=== PATIENT | female | born 1950 | race Caucasian/White ===

== ENCOUNTER 2017-06-30 12:50 | Emergency (ER) | payer MEDICARE, OTHER ==
[2017-06-30] MEDS ORDERED: Tetracaine HCl 0.5% Ophth Soln 2 ML Bottle ONE (13:07)
[2017-06-30] MEDS ORDERED: Fluorescein Opthalmic Strip ONE (13:07)
== END 2017-06-30 13:25 | disposition home or self-care (01) ==
LOC: NAV ERS 12:50
DX: H10.9 Unspecified conjunctivitis (principal); M10.9 Gout, unspecified; E11.9 Type 2 diabetes mellitus without complications; I10 Essential (primary) hypertension; Z79.84 Long term (current) use of oral hypoglycemic drugs; Z79.899 Other long term (current) drug therapy
CPT/HCPCS: 99283

== ENCOUNTER 2018-12-15 10:48 | Emergency (ER) | payer MEDICARE ==
[2018-12-15] MEDS ORDERED: traMADol HCl 50 MG TAB ONE (11:33)
--- NOTE | 2018-12-15 12:02 | RAD ---
LEFT SHOULDER THREE VIEWS: History: Trauma. Left shoulder pain. FINDINGS/IMPRESSION: Degenerative changes are present. No fracture or dislocation is identified. POS: [facility]
--- NOTE | 2018-12-15 13:50 | RAD ---
THORACIC SPINE 3 VIEWS: Date: 12/15/18 HISTORY: Trauma. Back pain. FINDINGS/IMPRESSION: Degenerative changes present. No acute fracture or subluxation is identified. POS: [facility]
--- NOTE | 2018-12-15 13:53 | CT ---
CT BRAIN WITHOUT CONTRAST: Date: 12/15/18 HISTORY: Fall. No loss of consciousness. Trauma to head. Left frontal headache. FINDINGS: A scalp contusion is seen in the left frontal region. No evidence of infarct, hemorrhage, midline bernard ft, or abnormal extra-axial fluid collections seen. The ventricular size is normal and the basilar ci sterns are patent. There are bilateral basal ganglia and posterior fossa calcifications. The bony dequan varium is intact. The visualized paranasal sinuses and mastoid air cells are well aerated. IMPRESSION: No CT evidence of acute intracranial process. POS: [facility]
== END 2018-12-15 12:57 | disposition home or self-care (01) ==
LOC: NAV ERS 10:48
DX: S46.912A Strain of unspecified muscle, fascia and tendon at shoulder and upper arm level, left arm, initial encounter (principal); S00.83XA Contusion of other part of head, initial encounter; M10.9 Gout, unspecified; E11.9 Type 2 diabetes mellitus without complications; I10 Essential (primary) hypertension; Z79.899 Other long term (current) drug therapy; Z79.84 Long term (current) use of oral hypoglycemic drugs; S80.212A Abrasion, left knee, initial encounter; W19.XXXA Unspecified fall, initial encounter
CPT/HCPCS: 70450; 72072

== ENCOUNTER 2023-05-10 11:06 | Emergency (ER) | payer OTHER | END 2023-05-10 12:52 | disposition home or self-care (01) | LOC: NAV ERS 11:06 | DX: S66.811A Strain of other specified muscles, fascia and tendons at wrist and hand level, right hand, initial encounter (principal); M10.9 Gout, unspecified; I10 Essential (primary) hypertension; E11.9 Type 2 diabetes mellitus without complications; X50.3XXA Overexertion from repetitive movements, initial encounter; Y92.69 Other specified industrial and construction area as the place of occurrence of the external cause | CPT/HCPCS: 99283 ==

== ENCOUNTER 2023-06-12 07:15 | Emergency (ER) | payer OTHER ==
[2023-06-12] MEDS ORDERED: LevoFLOXacin 750 MG TAB ONE (08:05)
== END 2023-06-12 08:30 | disposition home or self-care (01) ==
LOC: NAV ERS 07:15
DX: H04.302 Unspecified dacryocystitis of left lacrimal passage (principal); E11.9 Type 2 diabetes mellitus without complications; I10 Essential (primary) hypertension; I25.10 Atherosclerotic heart disease of native coronary artery without angina pectoris; Z79.899 Other long term (current) drug therapy
CPT/HCPCS: 99283